=== PATIENT | male | born 1995 | race African-American/Black ===

== ENCOUNTER 2023-03-20 15:37 | Inpatient (IN) | payer SELFPAY ==
[2023-03-20 16:27] LABS: #Basophils 0.1 thou/uL (0.0-0.2); #Eosinphils 0.1 thou/uL (0.0-0.7); #Monocytes 0.6 thou/uL (0.11-0.59); #Neutrophils 3.5 thou/uL (1.40-6.50); %Basophils 1.5 % (0.0-1.0); %Eosinophils 0.9 % (0.0-10.0); %Lymphocytes 23.4 % (21.0-51.0); %Monocytes 10.3 % (0.0-10.0); %Neutrophils 63.7 % (42.0-75.0); Hematocrit 45.8 % (42.0-52.0); Mean Corpuscular HGB CONC 32.8 g/dL (32.0-36.0); Mean Corpuscular Hemoglobin 28.6 pg (27.0-31.0); Mean Corpuscular Volume 87.2 fl (78.0-98.0); Mean Platelet Volume 10.8 fL (7.4-10.4); Platelet Count 181 10x3/uL (130-400); RBC Distribution Width 12.4 % (11.5-14.5); Red Blood Cell (RBC) Count 5.25 mill/uL (4.70-6.10); White Blood Cell (WBC) Count 5.4 10x3/uL (4.8-10.8)
[2023-03-20 16:49] LABS: Acetaminophen Less than 10 mcg/mL (10.0-30.0); Alcohol Less than 10.0 mg/dL (Less than 10); Salicylate Less than 8.0 mg/dL (15.0-30.0)
[2023-03-20 16:52] LABS: ALT (SGPT) 48 U/L (8-55); AST (SGOT) 100 U/L (5-34); Albumin 4.6 g/dL (3.5-5.0); Alkaline Phosphatase 41 U/L (40-110); Anion Gap 15 mmol/L (10-20); BUN (Urea Nitrogen) 12 mg/dL (8.9-20.6); Bilirubin, Total 0.7 mg/dL (0.2-1.2); Calc. Creatinine Clearance 0 mL/min (70-130); Calcium 9.4 mg/dL (7.8-10.44); Carbon Dioxide 25 mmol/L (22-29); Chloride 104 mmol/L (98-107); Estimated GFR 105; Globulin 2.7 g/dL (2.4-3.5); Glucose 88 mg/dL (70-105); Potassium 4.1 mmol/L (3.5-5.1); Protein, Total 7.3 g/dL (6.0-8.3); Sodium 140 mmol/L (136-145)
[2023-03-20 17:04] LABS: Bacteria/HPF None Seen HPF (None Seen); Bilirubin Negative (Negative); Blood, Urine Trace (Negative); CAUTI Indications for Culture Alt mental st,lethar; Clarity Clear (Clear); Glucose, Urine (Dipstick) Normal (Negative); Ketone, Urine 10 mg/dL (Negative); Leukocyte Negative Leu/uL (Negative); Nitrite Negative (Negative); Protein, Urine (Dipstick) 20 mg/dL (Neg-Trace); Specific Gravity, Urine 1.029 (1.002-1.036); Squamous Epithelial 0-3 HPF (0-3); WBC/HPF 0-3 HPF (0-3); pH, Urine 6.5 (5.0-9.0)
[2023-03-20 17:05] LABS: CK (CPK) 5942 U/L (30-200)
[2023-03-20 17:14] LABS: Urine Culture Reflex No No
[2023-03-20 17:22] LABS: Amphetamine Not Detected (NotDetected); Barbiturates Screen Not Detected (NotDetected); Benzodiazepine Screen Not Detected (NotDetected); Cocaine Metabolite Screen Not Detected (NotDetected); Methadone Not Detected (NotDetected); Methamphetamine Not Detected (NotDetected); Opiate Screen Not Detected (NotDetected); Oxycodone Screen Not Detected (NotDetected); Phencyclidine (PCP) Not Detected (NotDetected); THC/Cannabinoid Screen Not Detected (NotDetected); Tricyclic Screen Not Detected (NotDetected)
[2023-03-20] MEDS ORDERED: Ondansetron PF 4 MG/2 ML Vial IVP PRN (18:58)
[2023-03-20] MEDS ORDERED: Ondansetron ODT 4 MG TAB PO PRN (18:58)
[2023-03-20] MEDS ORDERED: Acetaminophen 325 MG TAB PO PRN (18:58)
[2023-03-20] MEDS ORDERED: Sodium Chloride 0.9% 1,000 ML IV SCH (19:00)
[2023-03-20 19:39] VITALS: BMI 20.7
[2023-03-20 20:35] LABS: Lactic Acid 1.1 mmol/L (0.5-2.2)
[2023-03-20] MEDS ORDERED: Lorazepam 2 MG/ML VIAL SLOW IVP PRN (20:35)
[2023-03-20 20:42] LABS: Actual Bicarbonate (HCO3v) 23.6 mEq/L (22-28); Calcium, Ionized (venous) 1.07 mmol/L (1.16-1.32); Chloride (VBG) 104 mmol/L (98-106); Hematocrit-VBG 43 % (42.0-52.0); Hemoglobin (Hb) 14.7 g/dL (13.2-17.3); Potassium (VBG) 3.84 mmol/L (3.70-5.30); Sodium 139 mmol/L (133-146); pH (venous) 7.396 (7.32-7.43)
[2023-03-20] MEDS ORDERED: Dextrose 50% Abboject 50 ML SYRINGE SLOW IVP PRN (22:24)
[2023-03-20] MEDS ORDERED: Glucagon 1 MG/ML KIT IM PRN (22:24)
[2023-03-20] MEDS ORDERED: Dextrose 5% in Water 1,000 ML IV PRN (22:24)
[2023-03-20] MEDS: Sodium Chloride 0.9% 1,000 ML IV SCH (22:55)
[2023-03-20] MEDS ORDERED: Dextrose 5% in Water 1,000 ML IV SCH (23:00)
[2023-03-21 05:32] LABS: #Eosinphils 0.1 thou/uL (0.0-0.7); #Monocytes 0.4 thou/uL (0.11-0.59); #Neutrophils 2.8 thou/uL (1.40-6.50); %Basophils 0.6 % (0.0-1.0); %Eosinophils 2.5 % (0.0-10.0); %Lymphocytes 31.4 % (21.0-51.0); %Monocytes 7.5 % (0.0-10.0); %Neutrophils 57.8 % (42.0-75.0); Hematocrit 41.3 % (42.0-52.0); Hemoglobin 13.7 g/dL (14.0-18.0); Mean Corpuscular HGB CONC 33.2 g/dL (32.0-36.0); Mean Corpuscular Hemoglobin 28.4 pg (27.0-31.0); Mean Corpuscular Volume 85.5 fl (78.0-98.0); Mean Platelet Volume 10.6 fL (7.4-10.4); Platelet Count 185 10x3/uL (130-400); RBC Distribution Width 12.1 % (11.5-14.5); Red Blood Cell (RBC) Count 4.83 mill/uL (4.70-6.10); White Blood Cell (WBC) Count 4.8 10x3/uL (4.8-10.8)
[2023-03-21 06:04] LABS: Anion Gap 11 mmol/L (10-20); BUN (Urea Nitrogen) 8 mg/dL (8.9-20.6); Calc. Creatinine Clearance 138 mL/min (70-130); Calcium 8.4 mg/dL (7.8-10.44); Carbon Dioxide 24 mmol/L (22-29); Chloride 107 mmol/L (98-107); Estimated GFR 128; Glucose 82 mg/dL (70-105); Potassium 3.3 mmol/L (3.5-5.1); Sodium 139 mmol/L (136-145)
[2023-03-21] MEDS ORDERED: Electrolyte Replacement Protocol 1 EACH FS SCH (07:15)
[2023-03-21 07:50] LABS: Phosphorus 3.8 mg/dL (2.3-4.7)
[2023-03-21 07:52] LABS: CK (CPK) 2923 U/L (30-200); Magnesium 1.9 mg/dL (1.6-2.6)
[2023-03-21] MEDS ORDERED: Magnesium 2 GM/50 ML(in water) 2 GM in Premix Bag 1 BAG IVPB SCH (08:15)
[2023-03-21] MEDS ORDERED: Potassium Chloride 20 MEQ TAB PO SCH (08:15)
[2023-03-21] MEDS: Sodium Chloride 0.9% 1,000 ML IV SCH (08:32)
[2023-03-21] MEDS: Potassium Chloride 20 MEQ in Premix Bag 1 BAG IVPB SCH ×2 (08:59→11:15)
[2023-03-21] MEDS ORDERED: FLU VACC QS2023-24(6MOS UP)/PF 60 MCG/0.5 ML SYRINGE IM ONE (09:00)
[2023-03-21] MEDS: Dextrose 5 % And 0.9 % NaCl 1,000 ML IV SCH ×2 (11:47→20:30)
[2023-03-21] MEDS ORDERED: Magnevist 469MG/ML 20 ML VIAL ONE (12:34)
[2023-03-22 04:30] LABS: #Eosinphils 0.1 thou/uL (0.0-0.7); #Monocytes 0.4 thou/uL (0.11-0.59); %Basophils 0.7 % (0.0-1.0); %Eosinophils 3.4 % (0.0-10.0); %Lymphocytes 37.8 % (21.0-51.0); %Monocytes 10.1 % (0.0-10.0); %Neutrophils 47.8 % (42.0-75.0); Hematocrit 40.8 % (42.0-52.0); Hemoglobin 13.5 g/dL (14.0-18.0); Mean Corpuscular HGB CONC 33.1 g/dL (32.0-36.0); Mean Corpuscular Hemoglobin 28.6 pg (27.0-31.0); Mean Corpuscular Volume 86.4 fl (78.0-98.0); Mean Platelet Volume 10.1 fL (7.4-10.4); Platelet Count 191 10x3/uL (130-400); RBC Distribution Width 12.1 % (11.5-14.5); Red Blood Cell (RBC) Count 4.72 mill/uL (4.70-6.10); White Blood Cell (WBC) Count 4.2 10x3/uL (4.8-10.8)
[2023-03-22 04:51] LABS: Anion Gap 9 mmol/L (10-20); BUN (Urea Nitrogen) 4 mg/dL (8.9-20.6); Calc. Creatinine Clearance 126 mL/min (70-130); Calcium 8.6 mg/dL (7.8-10.44); Carbon Dioxide 27 mmol/L (22-29); Chloride 107 mmol/L (98-107); Estimated GFR 124; Glucose 107 mg/dL (70-105); Potassium 3.4 mmol/L (3.5-5.1); Sodium 140 mmol/L (136-145)
[2023-03-22] MEDS: Dextrose 5 % And 0.9 % NaCl 1,000 ML IV SCH ×4 (05:25→22:10)
[2023-03-22] MEDS ORDERED: Potassium Chloride 20 MEQ TAB PO SCH (08:00)
[2023-03-23 06:02] LABS: Anion Gap 13 mmol/L (10-20); BUN (Urea Nitrogen) 4 mg/dL (8.9-20.6); CK (CPK) 1891 U/L (30-200); Calc. Creatinine Clearance 127 mL/min (70-130); Calcium 8.6 mg/dL (7.8-10.44); Carbon Dioxide 20 mmol/L (22-29); Chloride 108 mmol/L (98-107); Estimated GFR 125; Glucose 93 mg/dL (70-105); Potassium 4.4 mmol/L (3.5-5.1); Sodium 137 mmol/L (136-145)
[2023-03-23] MEDS: Dextrose 5 % And 0.9 % NaCl 1,000 ML IV SCH (07:31)
[2023-03-23 08:31] VITALS: BP 124/72; TEMP 97.7
[2023-03-23 09:04] LABS: #Eosinphils 0.2 thou/uL (0.0-0.7); #Monocytes 0.4 thou/uL (0.11-0.59); %Basophils 0.8 % (0.0-1.0); %Eosinophils 4.1 % (0.0-10.0); %Lymphocytes 24.7 % (21.0-51.0); %Monocytes 8.9 % (0.0-10.0); %Neutrophils 61.5 % (42.0-75.0); Hematocrit 46.7 % (42.0-52.0); Hemoglobin 15.4 g/dL (14.0-18.0); Mean Corpuscular Hemoglobin 28.5 pg (27.0-31.0); Mean Corpuscular Volume 86.5 fl (78.0-98.0); Mean Platelet Volume 10.2 fL (7.4-10.4); Platelet Count 183 10x3/uL (130-400); RBC Distribution Width 12.2 % (11.5-14.5); White Blood Cell (WBC) Count 4.8 10x3/uL (4.8-10.8)
== END 2023-03-23 12:22 | disposition home or self-care (01) | DRG 557 ==
LOC: ERS 15:37 → T4-A 18:26 → 2NO 21:09 → OBSVTOIN 03-21 13:25
PROVIDERS: ADMIT Family Medicine; ATTEND Internal Medicine
PROC: 0T9B70Z Drainage of Bladder with Drainage Device, Via Natural or Artificial Opening (ICD-10-PCS; principal; 2023-03-21)
PROC: 4A00X4Z Measurement of Central Nervous Electrical Activity, External Approach (ICD-10-PCS; 2023-03-21)
PROC: 4A043R1 Measurement of Venous Saturation, Peripheral, Percutaneous Approach (ICD-10-PCS; 2023-03-21)
DX: M62.82 Rhabdomyolysis (principal); G93.41 Metabolic encephalopathy; E16.2 Hypoglycemia, unspecified; Z79.899 Other long term (current) drug therapy; E87.6 Hypokalemia; F44.4 Conversion disorder with motor symptom or deficit; F32.A Depression, unspecified
CPT/HCPCS: 36415; 36416; 51701; 70450; 70553; 80048; 80053; 80306; 80307; 81001; 82140; 82533; 82550; 82805; 83605; 83735; 84100; 84145; 84146; 84443; 85025; 87040; 93005; 95711; 95819; 95957; 96360; 96361; A9579; G0378; J1611; J3475; J3480; J7042; J7050; J7070